=== PATIENT | male | born 1990 | race Caucasian/White ===

== ENCOUNTER → 2020-12-11 | Outpatient (CLI) | payer OTHER | END | disposition home or self-care (01) | LOC: LAB SHORT 17:57 → LAB EV 17:57 | DX: M10.9 Gout, unspecified (principal) | CPT/HCPCS: 84550 ==

== ENCOUNTER 2023-04-25 03:43 | Emergency (ER) | payer OTHER ==
[~2023-04-25] VITALS: Ht 177.8 cm; Wt 131.5 kg
[2023-04-25 05:16] VITALS: BP 142/87
[2023-04-25] MEDS ORDERED: AMOX875 PO (05:20)
[2023-04-25] MEDS ORDERED: IBUP400 PO (05:21)
[2023-04-25] MEDS ORDERED: CLIN300 PO (07:44)
[2023-04-25] MEDS ORDERED: NAPR500 PO (07:45)
== END 2023-04-25 08:11 | disposition home or self-care (01) ==
LOC: ER 03:43
DX: R59.1 Generalized enlarged lymph nodes (principal); J02.9 Acute pharyngitis, unspecified; Z79.1 Long term (current) use of non-steroidal anti-inflammatories (NSAID); J45.909 Unspecified asthma, uncomplicated
CPT/HCPCS: 87081; 87430; 99283; A9270; J1100

== ENCOUNTER 2023-08-04 23:00 | Emergency (ER) | payer OTHER ==
[~2023-08-04] VITALS: Ht 188 cm; Wt 136.1 kg
[~2023-08-04 23:00] MED LIST: AMOX875 PO; CLIN300 PO; IBUP400 PO; NAPR500 PO
[2023-08-04 23:06] VITALS: BP 143/75
== END 2023-08-05 01:07 | disposition home or self-care (01) ==
LOC: ER 23:00
DX: H15.89 Other disorders of sclera (principal); T15.92XA Foreign body on external eye, part unspecified, left eye, initial encounter; W44.9XXA Unspecified foreign body entering into or through a natural orifice, initial encounter; H10.9 Unspecified conjunctivitis
CPT/HCPCS: 99283; A9270

== ENCOUNTER 2023-08-21 03:20 | Emergency (ER) | payer OTHER ==
[~2023-08-21] VITALS: Ht 190.5 cm; Wt 127.0 kg
[2023-08-21 04:15] VITALS: BP 125/80
[2023-08-21] MEDS ORDERED: Ibuprofen600 MG PO (04:17)
[2023-08-21] MEDS ORDERED: ACET500 PO (04:17)
[2023-08-21] MEDS ORDERED: AMOCLA875 PO (04:17)
[2023-08-21] MEDS ORDERED: ALBU90OI INH (04:25)
== END 2023-08-21 04:27 | disposition home or self-care (01) ==
LOC: ER 03:20
DX: H66.91 Otitis media, unspecified, right ear (principal); J06.9 Acute upper respiratory infection, unspecified; J45.909 Unspecified asthma, uncomplicated
CPT/HCPCS: 99284; A9270

== ENCOUNTER → 2024-03-20 | Outpatient (CLI) | payer OTHER ==
[~2024-03-20] MED LIST changes: +ACET500 PO; +ALBU90OI INH; +AMOCLA875 PO; +Ibuprofen600 MG PO
== END | disposition home or self-care (01) ==
LOC: LAB SHORT 15:59 → LAB 15:59
DX: R06.02 Shortness of breath (principal)
CPT/HCPCS: 85379

== ENCOUNTER 2024-12-19 07:50 | Day surgery (SDC) | payer OTHER ==
[~2024-12-19] VITALS: Ht 190.5 cm; Wt 149.7 kg
[~2024-12-19 07:50] MED LIST changes: +NS 500 ML IV ONE
[2024-12-19] MEDS ORDERED: CeFAZolin Sodium 3,000 MG VIAL ONE (08:18)
[2024-12-19] MEDS ORDERED: NS 500 ML IV ONE (08:33)
[2024-12-19] MEDS ORDERED: Midazolam HCl 1MG / ML 2ML Vial ONE (09:22)
[2024-12-19] MEDS ORDERED: propofoL 20 ML IV ONE (09:22)
[2024-12-19] MEDS ORDERED: FentaNYL Citrate 50 MCG/ML 2 ML Injection ONE (09:22)
--- NOTE | 2024-12-19 09:22 | NUR ---
[facility] PER DR Y[facility]OUGH INJECTION WILL BE DONE IN OR INSTEAD OF PRE-OP
[2024-12-19] MEDS ORDERED: Lidocaine 1%-Epineph 1:200000 30 ML SDV XX ONE (09:32)
[2024-12-19 09:48] VITALS: BP 133/64
--- NOTE | 2024-12-19 10:04 | NUR ---
12/19/24 1004 [facility] [id number] DR. YARBROUGH AT BEDSIDE, PT W/MULTIPLE QUESTIONS.
== END 2024-12-19 10:06 | disposition home or self-care (01) ==
LOC: ORSCSDS 07:50
PROVIDERS: Orthopaedic Surgery
PROC: 01N54ZZ Release Median Nerve, Percutaneous Endoscopic Approach (ICD-10-PCS; principal; 2024-12-19 09:30)
DX: G56.03 Carpal tunnel syndrome, bilateral upper limbs (principal); E66.9 Obesity, unspecified; Z68.41 Body mass index [BMI] 40.0-44.9, adult
CPT/HCPCS: J0690; J2250; J2704; J3010; J7040

== ENCOUNTER → 2025-05-23 | Outpatient (CLI) | payer OTHER ==
[~2025-05-23] MED LIST changes: -NS 500 ML IV ONE
== END ==
LOC: LAB SHORT 15:14 → LAB 15:14
DX: D10.39 Benign neoplasm of other parts of mouth (principal)
CPT/HCPCS: 88305

== ENCOUNTER 2025-07-17 08:10 | Day surgery (SDC) | payer OTHER ==
[~2025-07-17] VITALS: Ht 188 cm; Wt 148.0 kg
[~2025-07-17 08:10] MED LIST changes: +NS 500 ML IV ONE
[2025-07-17] MEDS ORDERED: CeFAZolin Sodium 3,000 MG VIAL ONE (08:19)
[2025-07-17] MEDS ORDERED: NS 500 ML IV ONE (08:34)
[2025-07-17] MEDS ORDERED: FentaNYL Citrate 50 MCG/ML 2 ML Injection ONE (09:06)
[2025-07-17] MEDS ORDERED: Midazolam HCl 1MG / ML 2ML Vial ONE (09:08)
[2025-07-17 10:11] VITALS: BP 135/84
--- NOTE | 2025-07-17 10:16 | NUR ---
07/17/25 1016 MANISHA HECK PT REPORTS PAIN AT 6/10 TO RIGHT WRIST
[2025-07-17] MEDS ORDERED: HYDROcodone 5-APAP 325 TAB ONE (10:18)
== END 2025-07-17 10:29 | disposition home or self-care (01) ==
LOC: ORSCSDS 08:10
PROVIDERS: Orthopaedic Surgery
PROC: 01N54ZZ Release Median Nerve, Percutaneous Endoscopic Approach (ICD-10-PCS; principal; 2025-07-17 09:30)
DX: G56.01 Carpal tunnel syndrome, right upper limb (principal)
CPT/HCPCS: A9270; J0690; J2250; J2704; J3010; J7040